=== PATIENT | female | born 1940 | race Caucasian/White ===

== ENCOUNTER 2016-09-24 08:58 | Day surgery (SDC) | payer MEDICARE, BC ==
[2016-09-24] MEDS ORDERED: LIDOCAINE 2% MDV (20MG/ML) 20ML VIAL IV ONE (14:00)
[2016-09-24] MEDS ORDERED: FENTANYL PF 100MCG/2ML VIAL IV ONE (14:00)
[2016-09-24] MEDS ORDERED: PROPOFOL 10 MG/ML VIAL IV ONE (14:00)
--- NOTE | 2016-09-26 11:41 | Operative Note ---
DATE OF SURGERY: 09/24/16. OPERATION: Esophagogastroduodenoscopy with multiple biopsies. REFERRING PHYSICIAN: Arcelia Wilburn M.D. INDICATION: A history of Still's esophagus. The patient returns at this time for three-year surveillance. She continues to take medication (proton pump inhibitor therapy) for this. ANESTHESIA: Intravenous sedation was administered by the Department of Anesthesiology and included Diprivan titrated to effect. PROCEDURE: Following informed consent from this alert individual, including a discussion of the risks and benefits of the procedure and an opportunity for the patient to ask questions, the patient was in the left lateral decubitus position. The Olympus [id number] video endoscope was inserted into the esophagus without resistance. The proximal esophagus has a normal appearance with normal folds and distensibility. The mid esophagus, likewise, was free from changes. The distal esophageal segment demonstrated an island of Still's-appearing epithelium with an irregular Z-line compatible with short-segment Still's esophagus extending approximately 2.0 cm in length. The stomach was then entered. The gastric fundus and pars media had a normal appearance with normal folds and distensibility. The antrum evaluated circumferentially demonstrated some mild streak-like erythema without ulcerations or erosions noted. The pylorus was patent. The duodenal bulb, sweep, and descending duodenum were examined in a serial fashion and were found to be normal. The endoscope was then withdrawn back into the body of the stomach. Retroflexion was accomplished following air insufflation and failed to demonstrate any additional changes. There was evidence of previous fundoplication which seemed healthy in appearance. The endoscope was then straightened and withdrawn back to the distal esophagus where multiple biopsies were taken from the distal esophageal segment at the area of Still's appearing epithelium. After biopsy , the endoscope was then withdrawn back through a normal mid and proximal esophagus and removed from the patient. She tolerated the procedure well and was returned to the recovery area in stable condition. IMPRESSION: 1. Short-segment Still's esophagus as described above; biopsies taken. 2. Status post fundoplication. 3. Mild linear antral gastritis. RECOMMENDATIONS: 1. The patient will continue on acid blockade therapy. 2. Further recommendations will be forthcoming pending the results of the pathology obtained today. 3. Follow up also will be with Dr. Arcelia Wilburn. WYATT CHILEL cc: Arcelia Wilburn M.D. Job Number: [id number] MTDD
== END 2016-09-24 10:53 | disposition home or self-care (01) ==
LOC: HOP 08:58
PROVIDERS: ATTEND Internal Medicine Gastroenterology
DX: K22.70 Barrett's esophagus without dysplasia (principal); K29.50 Unspecified chronic gastritis without bleeding; I10 Essential (primary) hypertension; E78.00 Pure hypercholesterolemia, unspecified
CPT/HCPCS: 36416; 82948; 88305; 88313; 43239; 00740; J3010

== ENCOUNTER 2016-10-02 10:31 | Emergency (ER) | payer MEDICARE, BC ==
--- NOTE | 2016-10-02 11:22 | Emergency Department Record ---
History of Present Illness - General Chief Complaint: Fall Injury Stated Complaint: FELL BACK PAIN Time Seen by Provider: 10/02/16 10:56 Source: Patient Mode of Arrival: Ambulatory Limitations: No limitations - History of Present Illness Initial Comments: pt slipped on wet step while walking her dog and injured her back. she denies injuring her head or neck. she has no numbness or bowel and bladder problems. she also hit her elbow but just has minimal pain in it. pt took 2 norco 7.5 prior to coming in MD Complaint: Fall Onset/Timin -: Minutes(s) Fall From: Down stairs (#) When Fall Occurred: Just prior to arrival Fall Witnessed: No Place Fall Occurred: Home Loss of Consciousness: None Prolonged Down Time?: No Symptoms Prior to Fall: None Location: Back Severity: Moderate Severity scale (1-10): 10 Quality: Sharp Context: Tripped/slipped Associated Symptoms: Denies - Related Data Home Medications Medication Instructions Recorded Confirmed Last Taken Atorvastatin Calcium [Lipitor] 80 mg PO DAILY 10/02/16 10/02/16 Unknown Gabapentin [Gabapentin] 200 mg PO TID 10/02/16 10/02/16 Unknown Glipizide [Glipizide ER] 10 mg PO DAILY 10/02/16 10/02/16 Unknown Hydrocodone/Acetaminophen 7.5 mg PO QHS 10/02/16 10/02/16 Unknown [Hydrocodon-Acetaminoph 7.5-750] Omeprazole [Prilosec] 20 mg PO DAILY 10/02/16 10/02/16 Unknown Paroxetine HCl [Paroxetine HCl] 30 mg PO DAILY 10/02/16 10/02/16 Unknown Valsartan/Hydrochlorothiazide 1 tab PO DAILY 10/02/16 10/02/16 Unknown [Valsartan-Hctz 80-12.5 mg Tab] Allergies Allergy/AdvReac Type Severity Reaction Status Date / Time Carbapenems Allergy Mild HIVES Verified 07/19/15 12:52 Cephalosporins Allergy Mild HIVES Verified 07/19/15 12:52 erythromycin base Allergy Mild HIVES Verified 07/19/15 12:52 Macrolide Antibiotics Allergy Mild HIVES Verified 07/19/15 12:52 Penicillins Allergy Mild HIVES Verified 07/19/15 12:52 Sulfa (Sulfonamide Allergy Mild VOMITING Verified 07/19/15 12:52 Antibiotics) and hives Travel Screening - Travel/Exposure Within Last 30 Days Have you traveled within the last 30 days?: No Review of Systems Reviewed: No additional complaints except as noted below Constitutional: Reports: As per HPI. Denies: Chills, Fever, Malaise, Night sweats, Weakness, Weight change Eyes: Reports: As per HPI. Denies: Eye discharge, Eye pain, Photophobia, Vision change ENT: Reports: As per HPI. Denies: Congestion, Dental pain, Ear pain, Epistaxis , Hearing loss, Throat pain Respiratory: Reports: As per HPI. Denies: Cough, Dyspnea, Hemoptysis, Stridor, Wheezes Cardiovascular: Reports: As per HPI. Denies: Arrhythmia, Chest pain, Dyspnea on exertion, Edema, Murmurs, Orthopnea, Palpitations, Paroxysmal nocturnal dyspnea, Rheumatic Fever, Syncope Endocrine: Reports: As per HPI. Denies: Fatigue, Heat or cold intolerance, Polydipsia, Polyuria Gastrointestinal: Reports: As per HPI. Denies: Abdominal pain, Constipation, Diarrhea, Hematemesis, Hematochezia, Melena, Nausea, Vomiting Genitourinary: Reports: As per HPI. Denies: Abnormal menses, Discharge, Dyspareunia, Dysuria, Frequency, Hematuria, Incontinence, Retention, Urgency Musculoskeletal: Reports: As per HPI. Denies: Arthralgia, Back pain, Gout, Joint swelling, Myalgia, Neck pain Skin: Reports: As per HPI. Denies: Bruising, Change in color, Change in hair/ nails, Lesions, Pruritus, Rash Neurological: Reports: As per HPI. Denies: Abnormal gait, Confusion, Headache, Numbness, Paresthesias, Seizure, Tingling, Tremors, Vertigo, Weakness Psychiatric: Reports: As per HPI. Denies: Anxiety, Auditory hallucinations, Depression, Homicidal thoughts, Suicidal thoughts, Visual hallucinations Hematological/Lymphatic: Reports: As per HPI. Denies: Anemia, Blood Clots, Easy bleeding, Easy bruising, Swollen glands Past Medical History - SOCIAL HISTORY Smoking Status: Never smoker Alcohol Use: None Drug Use: None - RESPIRATORY Hx Respiratory Disorders: Yes Hx Asthma: Yes (YEARS AGO) - CARDIOVASCULAR Hx Cardio Disorders: Yes Hx Chest Pain: Yes (IN PACU TODAY) Hx Hypertension: Yes (GOOD CONTROL) - NEURO Hx Neuro Disorders: No - GI Hx GI Disorders: Yes Hx Reflux: Yes Hx Hiatal Hernia: Yes - Hx Genitourinary Disorders: No - ENDOCRINE Hx Endocrine Disorders: Yes Hx Diabetes: Yes (NIDDM X5YRS) - MUSCULOSKELETAL Hx Musculoskeletal Disorders: Yes Hx Arthritis: Yes - PSYCH Hx Psych Problems: No - HEMATOLOGY/ONCOLOGY Hx Hematology/Oncology Disorders: No Family Medical History Any Significant Family History?: No Physical Exam - General General Appearance: Alert, Oriented x3, Cooperative, Mild distress - Head Head exam: Normal inspection - Eye Eye exam: Normal appearance, PERRL, EOMI Pupils: Normal accommodation - ENT ENT exam: Normal exam, Mucous membranes moist, Normal external ear exam, Normal orophraynx, TM's normal bilaterally Ear exam: Normal external inspection. negative: External canal tenderness Nasal Exam: Normal inspection. negative: Discharge, Sinus tenderness Mouth exam: Normal external inspection, Tongue normal Teeth exam: Normal inspection. negative: Dental caries Throat exam: Normal inspection. negative: Tonsillar erythema, Tonsillar exudate - Neck Neck exam: Normal inspection, Full ROM. negative: Tenderness - Respiratory Respiratory exam: Normal lung sounds bilaterally. negative: Respiratory distress - Cardiovascular Cardiovascular Exam: Regular rate, Normal rhythm, Normal heart sounds - GI/Abdominal GI/Abdominal exam: Soft, Normal bowel sounds. negative: Tenderness - Rectal Rectal exam: Deferred - exam: Deferred - Extremities Extremities exam: Normal inspection, Full ROM, Normal capillary refill. negative: Tenderness - Back Back exam: Reports: Muscle spasm, Paraspinal tenderness, Tenderness, Vertebral tenderness. Denies: Normal inspection, Full ROM, Rash noted - Neurological Neurological exam: Alert, CN II-XII intact, Normal gait, Oriented X3, Reflexes normal - Psychiatric Psychiatric exam: Normal affect, Normal mood - Skin Skin exam: Dry, Intact, Normal color, Warm Course Vital Signs 10/02/16 10:38 Temperature 97.9 F Pulse Rate 77 Respiratory 20 Rate Blood Pressure 165/83 Pulse Ox 98 Medical Decision Making - Data Complexity MDM Data: X-Ray Ordered and/or Reviewed - Radiology Data Radiology results: Report reviewed, Image reviewed Disposition Disposition: Discharge Clinical Impression: Strain of muscle, fascia, or tendon of lower back, Multiple Bruises Disposition: Home, Self-Care Condition: (1) Good Instructions: Fall Prevention for Older Adults (ED), Contusion in Adults (ED), Low Back Strain (ED), Acute Low Back Pain, Assistant Research Scientist (GEN) Additional Instructions: follow up with family doctor. ice to the sore areas for 2 days then moist heat. return sooner if worse Forms: Patient Portal Access
--- NOTE | 2016-10-05 08:28 | RADIOLOGY REPORT ---
EXAM: LUMBAR SPINE HISTORY: BACK PAIN. TECHNIQUE: AP and lateral views of the lumbar spine were performed. FINDINGS: There is a Grade 1 anterolisthesis of L4 in respect to L5. No compression fracture deformity. No significant disk space narrowing. There is facet arthropathy in the lower lumbar spine. IMPRESSION: GRADE 1 ANTEROLISTHESIS OF L4 IN RESPECT TO L5. THE REMAINDER OF THE EXAMINATION IS UNREMARKABLE. JOB NUMBER: [id number] [facility]
== END 2016-10-02 12:25 | disposition home or self-care (01) ==
LOC: ER 10:31
DX: S39.012A Strain of muscle, fascia and tendon of lower back, initial encounter (principal); S50.01XA Contusion of right elbow, initial encounter; W10.9XXA Fall (on) (from) unspecified stairs and steps, initial encounter; Y92.009 Unspecified place in unspecified non-institutional (private) residence as the place of occurrence of the external cause
CPT/HCPCS: 72100; 99283

== ENCOUNTER 2017-03-07 04:05 | Emergency (ER) | payer MEDICARE, BC ==
[2017-03-07] MEDS ORDERED: HYDROCODONE/APAP 5/325MG TABLET PO ONE (04:28)
--- NOTE | 2017-03-07 04:39 | Emergency Department Record ---
History of Present Illness - General Chief Complaint: Back Pain/Injury Stated Complaint: BACK PAIN Time Seen by Provider: 03/07/17 04:22 Source: Patient Mode of Arrival: Ambulatory Limitations: No limitations - History of Present Illness Initial Comments: The patient is here due to a 4 day hx of L lower back pain. The onset was with bending when she was doing housework around the house. The pain is a deep aching pain that is always present mildly but gets much worse with any movement , bending or twisting. There is intermittent pain radiating down the L leg but no leg numbness, weakness or any bowel or bladder incontinence or issues. The patient has had similar issues in the past but this is worse. She decided to come into the ER at 4am due to not being able to sleep. The patient also denies any AP, dysuria, fever or chills. MD Complaint: Back pain Onset/Timin -: Days(s) Similar Symptoms Previously: Yes Place: Home Radiation: Left leg Severity: Moderate Severity scale (1-10): 8 Quality: Other Consistency: Constant Improves With: Immobilization Worsens With: Movement Context: Bending Associated Symptoms: Denies other symptoms Treatments Prior to Arrival: NSAIDS - Related Data Home Medications Medication Instructions Recorded Confirmed Last Taken Atorvastatin Calcium [Lipitor] 80 mg PO DAILY 10/02/16 03/07/17 Unknown Gabapentin [Gabapentin] 200 mg PO TID 10/02/16 03/07/17 Unknown Glipizide [Glipizide ER] 10 mg PO DAILY 10/02/16 03/07/17 Unknown Omeprazole [Prilosec] 20 mg PO DAILY 10/02/16 03/07/17 Unknown Paroxetine HCl [Paroxetine HCl] 30 mg PO DAILY 10/02/16 03/07/17 Unknown Valsartan/Hydrochlorothiazide 1 tab PO DAILY 10/02/16 03/07/17 Unknown [Valsartan-Hctz 80-12.5 mg Tab] Previous Rx's Medication Instructions Recorded Hydrocodone/Acetaminophen [[place] 1 each PO QID #20 tablet 03/07/17 5-325 Tablet] Allergies Allergy/AdvReac Type Severity Reaction Status Date / Time Carbapenems Allergy Mild HIVES Verified 07/19/15 12:52 Cephalosporins Allergy Mild HIVES Verified 07/19/15 12:52 erythromycin base Allergy Mild HIVES Verified 07/19/15 12:52 Macrolide Antibiotics Allergy Mild HIVES Verified 07/19/15 12:52 Penicillins Allergy Mild HIVES Verified 07/19/15 12:52 Sulfa (Sulfonamide Allergy Mild VOMITING Verified 07/19/15 12:52 Antibiotics) and hives Travel Screening - Travel/Exposure Within Last 30 Days Have you traveled within the last 30 days?: No - Travel/Exposure Within Last Year Have you traveled outside the [place] in the last year?: No - Additonal Travel Details Have you been exposed to anyone with a communicable illness?: No - Travel Symptoms Symptom Screening: None Review of Systems Constitutional: Denies: Chills, Fever Eyes: Denies: Eye discharge ENT: Denies: Congestion Respiratory: Denies: Cough, Dyspnea Past Medical History - SOCIAL HISTORY Smoking Status: Never smoker Alcohol Use: None Drug Use: None - RESPIRATORY Hx Respiratory Disorders: Yes Hx Asthma: Yes (YEARS AGO) - CARDIOVASCULAR Hx Cardio Disorders: Yes Hx Chest Pain: Yes Hx Hypertension: Yes (GOOD CONTROL) - NEURO Hx Neuro Disorders: No - GI Hx GI Disorders: Yes Hx Reflux: Yes Hx Hiatal Hernia: Yes Comment:: barrat's esophagus - Hx Genitourinary Disorders: No - ENDOCRINE Hx Endocrine Disorders: Yes Hx Diabetes: Yes (NIDDM X5YRS) - MUSCULOSKELETAL Hx Musculoskeletal Disorders: Yes Hx Arthritis: Yes - PSYCH Hx Psych Problems: No - HEMATOLOGY/ONCOLOGY Hx Hematology/Oncology Disorders: No Family Medical History Any Significant Family History?: No Physical Exam - General General Appearance: Alert, Oriented x3, Cooperative, No acute distress - Head Head exam: Atraumatic, Normocephalic, Normal inspection - Eye Eye exam: Normal appearance, PERRL - Neck Neck exam: Normal inspection, Full ROM. negative: Tenderness - Respiratory Respiratory exam: Normal lung sounds bilaterally. negative: Respiratory distress - Cardiovascular Cardiovascular Exam: Regular rate, Normal rhythm, Normal heart sounds - GI/Abdominal GI/Abdominal exam: Soft, Normal bowel sounds. negative: Guarding, Pulsatile mass, Rebound, Rigid, Tenderness - Extremities Extremities exam: Normal inspection, Full ROM, Normal capillary refill. negative: Tenderness - Back Back exam: Reports: Normal inspection, Paraspinal tenderness (There is mild spinal and moderate paraspinal tenderness over the lumbar L3-5 area.), Vertebral tenderness, Other (Neg SLR bilaterally.) - Neurological Neurological exam: Alert, Normal gait, Oriented X3, Reflexes normal (The patellar reflexes are 2+ and equal bilaterally and the achilles reflexes are 1+ and equal bilaterally.). negative: Abnormal gait, Altered, Motor sensory deficit Course Vital Signs 03/07/17 03/07/17 03/07/17 04:09 04:16 04:23 Temperature 97.6 F 97.6 F Pulse Rate 99 H Pulse Rate [ 85 75 Pulse Ox Probe] Respiratory 20 16 20 Rate Blood Pressure 214/111 Blood Pressure 214/111 179/94 [Left Arm] Pulse Ox 96 96 96 - Reevaluation(s) Reevaluation #1: The patient is doing better at this time. The pain is improved with the [place] and the patient is able to ambulate with no difficulty and only minor pain. I did explain to the patient that her xrays do not demonstrate any acute abnormalities. She is to use the [place] for pain if needed and to see her PCP for recheck. 03/07/17 05:04 Medical Decision Making - Data Complexity MDM Data: X-Ray Ordered and/or Reviewed - Radiology Data Radiology results: Report reviewed (LS Spine: No acute changes.) Disposition Disposition: Discharge Clinical Impression: Low back pain Qualifiers: Chronicity: acute Back pain laterality: left Sciatica presence: without sciatica Qualified Code(s): M54.5 - Low back pain Disposition: Home, Self-Care Condition: (1) Good Instructions: Low Back Strain (ED) Additional Instructions: Please rest when possible with no lifting or bending. Please use your home pain medicines if needed and use the [place] as directed. Please see your PCP for recheck and for a possible Pain Clinic referral if not better. Return to the ER for any increased pain, leg weakness, numbness, or any bowel or bladder issues. Prescriptions: Hydrocodone/Acetaminophen [[place] 5-325 Tablet] 1 each PO QID #20 tablet Forms: Patient Portal Access Time of Disposition: 05:07
--- NOTE | 2017-03-08 11:03 | RADIOLOGY REPORT ---
EXAM: LUMBAR SPINE / AP LAT HISTORY: PROGRESSIVE LOW BACK PAIN RADIATING TO LEFT LEG. TECHNIQUE: Two-view lumbar spine. COMPARISON: Lumbar spine, 10/02/2016. FINDINGS: Five lumbar segments. 3 mm of anterolisthesis of L4 upon L5 as before due to severe facet arthropathy. Moderate degenerative disc disease at L2 /3 with disc space narrowing and endplate osteophytes. Mild to moderate disc disease at L4/5. No acute fracture. There is also advanced facet arthropathy at L3/4. Moderate facet arthropathy at L5/S1 on the left. Moderate aortic calcification. IMPRESSION: 1. NO CHANGE FROM PRIOR STUDY. MULTILEVEL DEGENERATIVE DISC DISEASE MOST PRONOUNCED AT L2/3. 2. GRADE 1 ANTEROLISTHESIS OF L4 UPON L5 DUE TO SEVERE FACET ARTHROPATHY. 3. ALSO SEVERE FACET ARTHROPATHY AT L3/4. MODERATE FACET ARTHROPATHY L5/S1 ON THE LEFT. JOB NUMBER: [id number] [facility]TDD
== END 2017-03-07 05:18 | disposition home or self-care (01) ==
LOC: ER 04:05
DX: M54.5 Low back pain (principal); G89.11 Acute pain due to trauma; M79.652 Pain in left thigh; I10 Essential (primary) hypertension; X50.1XXA Overexertion from prolonged static or awkward postures, initial encounter; Y93.E9 Activity, other interior property and clothing maintenance; Y92.009 Unspecified place in unspecified non-institutional (private) residence as the place of occurrence of the external cause
CPT/HCPCS: 72100; 99283